=== PATIENT | male | born 1995 | race Caucasian/White ===

== ENCOUNTER 2017-10-21 15:40 | Emergency (ER) | payer SELFPAY ==
[~2017-10-21] VITALS: Ht 190.5 cm; Wt 85.2 kg
[2017-10-21] MEDS ORDERED: SODIUM CHLORIDE FLUSH 10ML SYR IVF ONE (16:30)
[2017-10-21] MEDS ORDERED: AMPICILLIN/SULBACTAM 3 GM in SODIUM CHLORIDE 0.9% 100 ML IV ONE (16:30)
[2017-10-21 17:19] VITALS: BP 116/67
== END 2017-10-21 17:30 | disposition home or self-care (01) ==
LOC: ED 17:24
DX: K04.6 Periapical abscess with sinus (principal)
CPT/HCPCS: 96365; 99284; J0295